=== PATIENT | female | born 1990 | race Caucasian/White ===

== ENCOUNTER 2017-01-08 13:18 | Emergency (ER) | payer OTHER ==
[2017-01-08] MEDS ORDERED: OXYCODONE HCL 5 MG TABLET ONE (14:42)
[2017-01-08] MEDS ORDERED: KETOROLAC TROMETHAMINE 15 MG/ML VIAL ONE (14:42)
[2017-01-08] MEDS ORDERED: ACETAMINOPHEN 500 MG TABLET ONE (14:42)
[2017-01-08] MEDS ORDERED: KETOROLAC TROMETHAMINE 30 MG/ML 1 ML VIAL ONE (14:50)
== END 2017-01-08 15:53 | disposition home or self-care (01) ==
LOC: ED 13:18
DX: M54.5 Low back pain (principal); F17.210 Nicotine dependence, cigarettes, uncomplicated
CPT/HCPCS: 99283 ×2; 96372; A9270 ×2; J1885